=== PATIENT | female | born 1985 | race Caucasian/White ===

== ENCOUNTER 2019-03-04 11:53 | Inpatient (IN) ==
--- NOTE | 2019-03-04 12:12 | Emergency Department Note ---
Disposition Clinical Impression: SIRS (systemic inflammatory response syndrome), Status post splenectomy UTI (urinary tract infection) Qualifiers: Urinary tract infection type: acute cystitis Hematuria presence: without hematuria Qualified Code(s): N30.00 - Acute cystitis without hematuria Disposition: Admitted As Inpatient Condition: Fair Referrals: NONE,PCP [Primary Care Provider] - Forms: ED Satisfaction Letter, Work/School Release Time of Disposition: 14:06 General Adult HPI - General Chief complaint: ED General Medical Stated complaint: nausea, bodyaches, and elevated glucose Time Seen by Provider: 03/04/19 12:07 Source: patient Mode of arrival: private vehicle Limitations: no limitations Nursing Notes Reviewed: Yes Vital Signs Reviewed: Yes - History of Present Illness HPI Narrative: Patient relates she woke her 11 PM yesterday evening feeling chills and feeling very sluggish and tired. She states her temperature did spike to 101.7 and she took some Tylenol. She has diffuse aches primarily in her back. She has had mild headache without light sensitivity or neck stiffness. She denies sore throat, cough or shortness of breath. She denies abdominal pain but has had little nausea without vomiting. She has diarrhea. She notes urinary frequency without burning area she was exposed to somebody with viral upper respiratory type infection a week ago. This morning she states her blood sugars were high for her and were about 200 and then rechecked at 177. She does have an insulin pump. She states she had complications of pancreatitis and has had cholecystectomy, splenectomy, pancreatectomy as well as partial bowel resection as a result. 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 Onset (ago): hour(s) (12) Pain Scale: 5 - Related Data Home Medications Medication Instructions Recorded Confirmed Insulin Pump/Infus. Set/Meter 12/24/16 [Accu-Chek Combo System] Lipase/Protease/Amylase [Bibi Rogers 6 tab PO ACHS 12/24/16 02/17/17 24,000 Units Capsule] Kmd136/Iron Fumarate/FA/Dss 1 tab PO DAILY 12/24/16 02/17/17 [ 19 Tablet] Allergies Allergy/AdvReac Type Severity Reaction Status Date / Time hydromorphone [From Dilaudid] Allergy Rash Verified 12/24/16 20:22 meperidine [From Demerol] Allergy Anaphylaxis Verified 03/21/17 20:22 methadone [Methadone] Allergy Itching Verified 01/19/17 18:10 morphine Allergy Anaphylaxis Verified 12/24/16 20:22 moxifloxacin [From Avelox] Allergy Rash Verified 12/24/16 20:22 vancomycin Allergy Rash Verified 12/24/16 20:22 All systems ED: reviewed and negative except as stated. Past Medical History - Past Medical History Attestation: Yes The following information was validated with the patient. Source: patient, nursing notes reviewed Medical history: Reports: diabetes, other (Prior severe pancreatitis) Surgical history: Reports: appendectomy, cholecystectomy, splenectomy, other (Pancreas, partial bowel resection) Psychiatric history: Reports: depression - Social History Smoking Status: Never smoker Smokeless Tobacco Status: No Alcohol use: Reports: none Drug use: Reports: none Physical Exam - General Limitations: no limitations General appearance: alert, in no apparent distress - Head Head exam: atraumatic, normocephalic, normal inspection - Eye Eye exam: Present: normal appearance, PERRL, EOMI, other (No light sensitivity). Absent: scleral icterus, conjunctival injection - ENT ENT exam: normal exam, normal oropharynx, mucous membranes moist - Neck Neck exam: Present: normal inspection, full ROM, trachea midline - Chest Chest inspection: Present: normal inspection, symmetric chest wall rise - Respiratory Respiratory exam: Present: normal lung sounds bilaterally. Absent: respiratory distress, wheezes, prolonged expiratory phase - Cardiovascular Cardiovascular exam: Present: regular rate, normal rhythm, normal heart sounds - Abdominal Exam Abdominal exam: Present: soft, Non-Tender, normal bowel sounds. Absent: tenderness, distention, guarding, rebound, rigidity - Extremities Exam Extremities exam: Present: normal inspection, full ROM, normal capillary refill. Absent: tenderness, pedal edema - Expanded Lower Extremity Exam Neurovascular/Tendon exam: Present: normal capillary refill. Absent: motor deficit, sensory deficit, tendon deficit - Back Exam Back exam: Present: normal inspection, full ROM, CVA tenderness (R), CVA tenderness (L). Absent: tenderness - Neurological Exam Neurological exam: Present: alert, oriented X3 - Psychiatric Psychiatric exam: Present: normal affect, normal mood - Skin Skin exam: Present: warm, dry, intact, normal color. Absent: diaphoresis, pallor Course Course Narrative: 1400: Care has been discussed with the patient. She states she often does go on Zosyn and I have started with 2 g of Rocephin. I advised with her splenectomy and leukocytosis and fever it will be best to continue on IV fluids and antibiotics. She states her gastric urologist is in [place] but does feel comfortable staying here. A call has been placed to Dr. Gale to discuss inpatient care and also additional antibiotic coverage as needed. Vital Signs Temperature 101.1 F H 03/04/19 11:54 Pulse Rate 118 03/04/19 11:54 Respiratory Rate 18 03/04/19 11:54 Blood Pressure 113/80 03/04/19 11:54 O2 Sat by Pulse Oximetry 99 03/04/19 11:54 Temperature 101.1 F H 03/04/19 11:54 Pulse Rate 105 03/04/19 13:25 Respiratory Rate 18 03/04/19 13:25 Blood Pressure 133/86 03/04/19 13:25 O2 Sat by Pulse Oximetry 100 03/04/19 13:25 Oxygen Delivery Oxygen Delivery Room Air Medical Decision Making - Lab Data Lab results reviewed: Yes I reviewed the patient's lab results. Result diagrams: 03/04/19 12:39 03/04/19 12:39 Lab Results 03/04/19 03/04/19 03/04/19 Range/Units 12:13 12:39 12:39 WBC 33.0 H* (4.3-11.1) K/mcL RBC 4.47 (3.82-4.97) M/mcL Hgb 14.2 (11.5-15.4) g/dL Hct 40.5 (35.3-44.9) % MCV 90.6 (83.0-100.0) fL MCH 31.8 (28.0-33.3) pg MCHC 35.1 (31.6-35.5) g/dL RDW 13.3 (11.5-14.5) % Plt Count 268 (140-400) K/mcL MPV 12.4 (9.4-12.4) fL Seg Neutrophils % 82.0 % Band Neutrophils % 4.0 (0-4) % Lymphocytes % 2.0 % Monocytes % 12.0 % Neutrophils # 28.4 H (1.6-8.9) K/mcL Lymphocytes # 0.7 (0.6-4.6) K/mcL Monocytes # 4.0 H (0.0-1.3) K/mcL Hypersegmented Neuts Present A (Not Present) Platelet Estimate Normal (Normal) Sodium 133 L (136-145) mEq/L Potassium 3.6 (3.5-5.1) mEq/L Chloride 100 (98-107) mEq/L Carbon Dioxide 23 (23-29) mEq/L BUN 16 (6-20) mg/dL Creatinine 1.02 (0.60-1.20) mg/dL Est GFR ( Amer) > 60 (> 60) Est GFR (Non-Af Amer) > 60 (> 60) BUN/Creatinine Ratio 16 (6-26) Glucose 144 H (70-105) mg/dL Calculated Osmolality 280 (280-300) Lactic Acid (0.5-2.2) mmol/L Calcium 9.0 (8.6-10.3) mg/dL Total Bilirubin (0.3-1.0) mg/dL Direct Bilirubin (0.0-0.2) mg/dL Indirect Bilirubin (0.0-1.2) mg/dL AST (13-39) Units/L ALT (7-52) Units/L Alkaline Phosphatase (34-104) Units/L Serum Total Protein (6.4-8.9) g/dL Albumin (3.5-5.7) g/dL Globulin (2.4-3.5) g/dL Albumin/Globulin Ratio (1.1-2.2) Urine Color Yellow (Yellow) Urine Clarity Clear (Clear) Urine pH 5.5 (5.0-8.0) pH Units Ur Specific [place] 1.025 (1.010-1.025) Urine Protein 100 H (Neg-Trace) mg/dL Urine Glucose (UA) Normal (Normal) mg/dL Urine Ketones Trace H (Negative) mg/dL Urine Blood Trace-lysed H (Negative) Urine Nitrite Negative (Negative) Urine Bilirubin Small H (Negative) Urine Urobilinogen Normal (Normal) mg/dL Ur Leukocyte Esterase Trace H (Negative) Urine Microscopic RBC 0-3 (0-3) per hpf Urine Microscopic WBC 15-30 H (0-3) per hpf Ur Squamous Epith Cells Moderate H (None-Few) per lpf Urine Bacteria Many H (None-Few) per hpf Urine Mucus Moderate H (Few) Ur Culture Indicated? YES A (NO) 03/04/19 03/04/19 Range/Units 12:39 12:39 WBC (4.3-11.1) K/mcL RBC (3.82-4.97) M/mcL Hgb (11.5-15.4) g/dL Hct (35.3-44.9) % MCV (83.0-100.0) fL MCH (28.0-33.3) pg MCHC (31.6-35.5) g/dL RDW (11.5-14.5) % Plt Count (140-400) K/mcL MPV (9.4-12.4) fL Seg Neutrophils % % Band Neutrophils % (0-4) % Lymphocytes % % Monocytes % % Neutrophils # (1.6-8.9) K/mcL Lymphocytes # (0.6-4.6) K/mcL Monocytes # (0.0-1.3) K/mcL Hypersegmented Neuts (Not Present) Platelet Estimate (Normal) Sodium (136-145) mEq/L Potassium (3.5-5.1) mEq/L Chloride (98-107) mEq/L Carbon Dioxide (23-29) mEq/L BUN (6-20) mg/dL Creatinine (0.60-1.20) mg/dL Est GFR ( Amer) (> 60) Est GFR (Non-Af Amer) (> 60) BUN/Creatinine Ratio (6-26) Glucose (70-105) mg/dL Calculated Osmolality (280-300) Lactic Acid 1.4 (0.5-2.2) mmol/L Calcium (8.6-10.3) mg/dL Total Bilirubin 1.4 H (0.3-1.0) mg/dL Direct Bilirubin 0.3 H (0.0-0.2) mg/dL Indirect Bilirubin 1.1 (0.0-1.2) mg/dL AST 43 H (13-39) Units/L ALT 25 (7-52) Units/L Alkaline Phosphatase 120 H (34-104) Units/L Serum Total Protein 7.8 (6.4-8.9) g/dL Albumin 4.2 (3.5-5.7) g/dL Globulin 3.6 H (2.4-3.5) g/dL Albumin/Globulin Ratio 1.2 (1.1-2.2) Urine Color (Yellow) Urine Clarity (Clear) Urine pH (5.0-8.0) pH Units Ur Specific [place] (1.010-1.025) Urine Protein (Neg-Trace) mg/dL Urine Glucose (UA) (Normal) mg/dL Urine Ketones (Negative) mg/dL Urine Blood (Negative) Urine Nitrite (Negative) Urine Bilirubin (Negative) Urine Urobilinogen (Normal) mg/dL Ur Leukocyte Esterase (Negative) Urine Microscopic RBC (0-3) per hpf Urine Microscopic WBC (0-3) per hpf Ur Squamous Epith Cells (None-Few) per lpf Urine Bacteria (None-Few) per hpf Urine Mucus (Few) Ur Culture Indicated? (NO)
[2019-03-04] MEDS ORDERED: Ondansetron 4 MG/2 ML VIAL IVP ONE (12:17)
[2019-03-04] MEDS ORDERED: 0.9 % Sodium Chloride 1,000 ML IVC ONE (12:17)
[2019-03-04 13:01] LABS: Hematocrit 40.5 % (35.3-44.9); Hemoglobin 14.2 g/dL (11.5-15.4); Mean Corpuscular HGB Conc 35.1 g/dL (31.6-35.5); Mean Corpuscular Hemoglobin 31.8 pg (28.0-33.3); Mean Corpuscular Volume 90.6 fL (83.0-100.0); Mean Platelet Volume 12.4 fL (9.4-12.4); Platelet Count 268 K/mcL (140-400); Red Blood Count 4.47 M/mcL (3.82-4.97); Red Cell Distribution Width 13.3 % (11.5-14.5)
[2019-03-04 13:11] LABS: Bilirubin,Urine Small (Negative); Blood,Urine Trace-lysed (Negative); Clarity,Urine Clear (Clear); Color,Urine Yellow (Yellow); Glucose,Urine (UA) Normal (Normal); Ketones,Urine Trace mg/dL (Negative); Leukocyte Esterase,Urine Trace (Negative); Nitrite,Urine Negative (Negative); PH,Urine 5.5 pH Units (5.0-8.0); Protein,Urine 100 mg/dL (Neg-Trace); Specific Gravity,Urine 1.025 (1.010-1.025); Urobilinogen,Urine Normal (Normal)
[2019-03-04 13:15] LABS: Bacteria,Urine Many per hpf (None-Few); Mucus,Urine Moderate (Few); RBC,Urine 0-3 per hpf (0-3); Squamous Epithelial Cell,Urine Moderate per lpf (None-Few); WBC,Urine 15-30 per hpf (0-3)
[2019-03-04 13:17] LABS: Albumin 4.2 g/dL (3.5-5.7); Albumin/Globulin Ratio 1.2 (1.1-2.2); Bilirubin,Direct 0.3 mg/dL (0.0-0.2); Bilirubin,Indirect 1.1 mg/dL (0.0-1.2); Bilirubin,Total 1.4 mg/dL (0.3-1.0); Globulin 3.6 g/dL (2.4-3.5); Total Protein 7.8 g/dL (6.4-8.9)
[2019-03-04 13:47] LABS: Hypersegmented Neutrophils Present (Not Present); Lymphocytes # 0.7 K/mcL (0.6-4.6); Neutrophils # 28.4 K/mcL (1.6-8.9); Platelet Estimate Normal (Normal)
[2019-03-04 13:55] LABS: BUN/Creatinine Ratio 16 (6-26); Blood Urea Nitrogen 16 mg/dL (6-20); Carbon Dioxide 23 mEq/L (23-29); Chloride 100 mEq/L (98-107); Glucose 144 mg/dL (70-105); Osmolality,Calculated 280 (280-300); Potassium 3.6 mEq/L (3.5-5.1); Sodium 133 mEq/L (136-145); eGFR For African Americans > 60 (> 60); eGFR For Non-African Americans > 60 (> 60)
[2019-03-04] MEDS ORDERED: cefTRIAXone 2,000 MG in 0.9 % Sodium Chloride Mini Bag 100 ML IVPB ONE (14:03)
[2019-03-04] MEDS ORDERED: *HR* Promethazine 25 MG/ML VIAL IVP ONE (14:21)
[2019-03-04] MEDS ORDERED: cefTRIAXone 2,000 MG in Water for inj. (sterile) 20 ML IVP ONE (15:00)
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
[2019-03-04] MEDS: Acetaminophen 325 MG TABLET PO PRN (18:11)
[2019-03-04] MEDS: Nitrofurantoin (BID) 100 MG CAPSULE PO SCH (18:11)
[2019-03-04] MEDS: Ondansetron ODT 4 MG TAB.RAPDIS SL PRN ×2 (18:56→23:26)
[2019-03-04] MEDS: 0.45 % Sodium Chloride w/KCl 20 MEQ/1,000 ML MLS IVC SCH (18:56)
[2019-03-04] MEDS: Ibuprofen 600 MG TABLET PO PRN (22:03)
[2019-03-04] MEDS: *HR* Promethazine 25 MG/ML VIAL IVP PRN (22:04)
[2019-03-04] MEDS: Lactobacillus 1 EACH CAP.SPRINK PO SCH (23:26)
[2019-03-05] MEDS: 0.45 % Sodium Chloride w/KCl 20 MEQ/1,000 ML MLS IVC SCH ×3 (02:55→17:26)
[2019-03-05 06:24] LABS: Basophils # 0.1 K/mcL (0.0-0.2); Basophils % 0.3 %; Hematocrit 35.6 % (35.3-44.9); Hemoglobin 12.6 g/dL (11.5-15.4); Immature Granulocytes % 1.4 % (0-4); Lymphocytes # 1.7 K/mcL (0.6-4.6); Lymphocytes % 5.8 %; Mean Corpuscular HGB Conc 35.4 g/dL (31.6-35.5); Mean Corpuscular Hemoglobin 31.8 pg (28.0-33.3); Mean Corpuscular Volume 89.9 fL (83.0-100.0); Mean Platelet Volume 12.2 fL (9.4-12.4); Monocytes # 2.1 K/mcL (0.0-1.3); Monocytes % 7.2 %; Platelet Count 213 K/mcL (140-400); Red Blood Count 3.96 M/mcL (3.82-4.97); Red Cell Distribution Width 13.8 % (11.5-14.5); Segmented Neutrophils % 85.3 %; White Blood Count 29.3 K/mcL (4.3-11.1)
[2019-03-05 07:18] LABS: Platelet Estimate Normal (Normal)
[2019-03-05 07:24] LABS: Alanine Aminotransferase 23 Units/L (7-52); Albumin 3.2 g/dL (3.5-5.7); Albumin/Globulin Ratio 1.1 (1.1-2.2); Alkaline Phosphatase 95 Units/L (34-104); Aspartate Amino Transferase 24 Units/L (13-39); BUN/Creatinine Ratio 19 (6-26); Bilirubin,Total 0.7 mg/dL (0.3-1.0); Blood Urea Nitrogen 18 mg/dL (6-20); Calcium 8.1 mg/dL (8.6-10.3); Carbon Dioxide 20 mEq/L (23-29); Chloride 103 mEq/L (98-107); Globulin 2.9 g/dL (2.4-3.5); Glucose 291 mg/dL (70-105); Osmolality,Calculated 285 (280-300); Potassium 4.2 mEq/L (3.5-5.1); Sodium 131 mEq/L (136-145); Total Protein 6.1 g/dL (6.4-8.9); eGFR For African Americans > 60 (> 60); eGFR For Non-African Americans > 60 (> 60)
[2019-03-05] MEDS: *HR* Promethazine 25 MG/ML VIAL IVP PRN ×3 (08:41→20:38)
[2019-03-05] MEDS: cefTRIAXone 1,000 MG in Water for inj. (sterile) 10 ML IVP SCH (08:42)
[2019-03-05] MEDS: Nitrofurantoin (BID) 100 MG CAPSULE PO SCH ×2 (08:43→17:23)
[2019-03-05] MEDS: Lactobacillus 1 EACH CAP.SPRINK PO SCH ×2 (08:43→20:38)
[2019-03-05] MEDS: Ibuprofen 600 MG TABLET PO PRN (14:12)
--- NOTE | 2019-03-05 14:14 | Internal Med Progress Note ---
Date of Encounter: 03/05/19 Time of Encounter: 14:05 - Assessment and plan (1) UTI (urinary tract infection) Current Visit: Yes Status: Acute Assessment and plan: March 05. WBC has decreased to 29.3K. Continue empiric Rocephin and Macrobid with lactobacillus. Preliminary culture report shows gram-negative rods. Qualifiers: Urinary tract infection type: acute cystitis Hematuria presence: without hematuria Qualified Code(s): N30.00 - Acute cystitis without hematuria (2) Diabetes Current Visit: No Status: Chronic Assessment and plan: March 05. She has restarted insulin pump. Continue Accu-Cheks with SSI. Qualifiers: Diabetes mellitus type: due to underlying condition Diabetes mellitus medical terminologist insulin use: with medical terminologist use Diabetes mellitus complication status: with unspecified complications Qualified Code(s): E08.8 - Diabetes mellitus due to underlying condition with unspecified complications; Z79.4 - intermodal dispatcher (current) use of insulin (3) History of pancreatectomy Current Visit: Yes Status: Acute Assessment and plan: March 05. Continue Creon before meals and at bedtime. - Subjective Interval history: March 05. She has no new complaints except a headache - Constitutional Vitals: Temp Pulse Resp BP Pulse Ox 102.1 F H 70 17 98/56 98 03/05/19 14:11 03/05/19 11:10 03/05/19 11:10 03/05/19 11:10 03/05/19 11:10 Exam: She is sitting on the side of the bed and appears in no acute distress. Her affect is overall cheerful. I reviewed her medications and lab results. Internal Medicine: Result - Labs CBC & Chem 7: 03/05/19 06:07 03/05/19 06:07 Labs: Short CBC 03/05/19 Range/Units 06:07 WBC 29.3 H (4.3-11.1) K/mcL Hgb 12.6 D (11.5-15.4) g/dL Hct 35.6 (35.3-44.9) % Plt Count 213 (140-400) K/mcL Neutrophils # 25.0 H (1.6-8.9) K/mcL BMP 03/05/19 06:07 Sodium 131 L Potassium 4.2 Chloride 103 Carbon Dioxide 20 L BUN 18 Creatinine 0.96 Glucose 291 H Calcium 8.1 L Liver Function 03/05/19 Range/Units 06:07 Total Bilirubin 0.7 (0.3-1.0) mg/dL AST 24 (13-39) Units/L ALT 23 (7-52) Units/L Alkaline Phosphatase 95 (34-104) Units/L Albumin 3.2 L (3.5-5.7) g/dL Consult Discharge Plan - Plan Referrals: NONE,PCP [Primary Care Provider] - 1 week
--- NOTE | 2019-03-05 21:29 | Electrocardiograph Report ---
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
[2019-03-06] MEDS: *HR* Promethazine 25 MG/ML VIAL IVP PRN (05:18)
[2019-03-06] MEDS: 0.45 % Sodium Chloride w/KCl 20 MEQ/1,000 ML MLS IVC SCH ×2 (05:18→08:45)
[2019-03-06] MEDS: Nitrofurantoin (BID) 100 MG CAPSULE PO SCH (07:57)
[2019-03-06] MEDS: cefTRIAXone 1,000 MG in Water for inj. (sterile) 10 ML IVP SCH (07:57)
[2019-03-06] MEDS: Lactobacillus 1 EACH CAP.SPRINK PO SCH (07:57)
[2019-03-06] MEDS: Acetaminophen 325 MG TABLET PO PRN (07:57)
[2019-03-06 10:19] VITALS: BP 102/59
[2019-03-06 10:25] LABS: Basophils # 0.1 K/mcL (0.0-0.2); Basophils % 0.3 %; Eosinophils # 0.1 K/mcL (0.0-0.6); Eosinophils % 0.4 %; Hematocrit 31.7 % (35.3-44.9); Hemoglobin 11.2 g/dL (11.5-15.4); Immature Granulocytes % 0.7 % (0-4); Lymphocytes # 1.1 K/mcL (0.6-4.6); Lymphocytes % 5.5 %; Mean Corpuscular HGB Conc 35.3 g/dL (31.6-35.5); Mean Corpuscular Hemoglobin 31.8 pg (28.0-33.3); Mean Corpuscular Volume 90.1 fL (83.0-100.0); Mean Platelet Volume 12.6 fL (9.4-12.4); Monocytes # 1.7 K/mcL (0.0-1.3); Monocytes % 8.8 %; Platelet Count 189 K/mcL (140-400); Red Blood Count 3.52 M/mcL (3.82-4.97); Red Cell Distribution Width 14.2 % (11.5-14.5); Segmented Neutrophils % 84.3 %; White Blood Count 19.5 K/mcL (4.3-11.1)
[2019-03-06 10:29] LABS: Neutrophils # 16.4 K/mcL (1.6-8.9)
[2019-03-06 10:30] LABS: BUN/Creatinine Ratio 13 (6-26); Blood Urea Nitrogen 10 mg/dL (6-20); Carbon Dioxide 22 mEq/L (23-29); Chloride 104 mEq/L (98-107); Glucose 252 mg/dL (70-105); Osmolality,Calculated 282 (280-300); Potassium 3.9 mEq/L (3.5-5.1); Sodium 132 mEq/L (136-145); eGFR For African Americans > 60 (> 60); eGFR For Non-African Americans > 60 (> 60)
[2019-03-06] MEDS: Ibuprofen 600 MG TABLET PO PRN (12:00)
--- NOTE | 2019-03-06 14:06 | Discharge Summary ---
Orders not resulted at time of discharge: Pending orders 03/04/19 12:39 Culture,Blood [BC] Stat Date of Encounter: 03/06/19 Time of Encounter: 13:55 - Discharge Diagnosis (1) UTI (urinary tract infection) Priority: Primary Status: Acute Qualifiers: Urinary tract infection type: acute cystitis Hematuria presence: without hematuria Qualified Code(s): N30.00 - Acute cystitis without hematuria (2) Diabetes Priority: Secondary Status: Chronic Qualifiers: Diabetes mellitus type: due to underlying condition Diabetes mellitus custodial insulin use: with local intermodal truck driver use Diabetes mellitus complication status: with unspecified complications Qualified Code(s): E08.8 - Diabetes mellitus due to underlying condition with unspecified complications; Z79.4 - terminal operator (current) use of insulin (3) History of pancreatectomy Priority: Secondary Status: Acute Hospital course: Ms. Ford is a 33 year old female who came to emergency room stating she had onset of fevers and chills with nausea approximately 11 p.m. the evening of March 04. When symptoms persisted for several hours she came to emergency room. She was found to have fever 101.1 on presentation with evidence of UTI. WBC was significantly elevated at 33.0 with left shift on differential. She was admitt ed to [facility] floor for ongoing care needs. Initial orders were written by the emergency room physician. I saw her on March 04 and performed a history and physical. She was started empirically on Alessandro ephin in emergency room for UTI. Macrobid was added for additional spectrum coverage. Urine culture returned growing Enterobacter with sensitivity to Rocephin and Macrobid. She had good clinical response to treatment with WBC decreasing to 19.5 by March 06. When I saw her March 06 she stated she felt improved enough to be discharged home. I offered keeping her another day in the hospital for IV antibiotics and told her she was still spiking fever up to 101.7 with elevated WBC. She wished to be discharged. She will be discharged home to continue antibiotic and probiotic for an additional 7 days. She will follow with a PCP within 1 week. - Time Spent with Patient Total time spent providing and/or coordinating discharge services: - Discharge Medications Prescriptions: New Sulfamethoxazole/Trimeth DS [Bactrim DS] 1 each PO BID #14 tablet Lactobacillus [Culturelle] 1 each PO BID #14 cap.sprink Nitrofurantoin (BID) [Macrobid] 100 mg PO BIDWM #14 capsule Promethazine [Phenergan] 12.5 mg PO Q6HR PRN #10 tablet PRN Reason: Nausea Continued Lipase/Protease/Amylase [Bibi Rogers 24,000 Units Capsule] 6 tab PO ACHS Aac263/Iron Fumarate/FA/Dss [ 19 Tablet] 1 tab PO DAILY Insulin Pump/Infus. Set/Meter [Accu-Chek Combo System] Home Medications: Insulin Pump/Infus. Set/Meter [Accu-Chek Combo System] 12/24/16 [History] Lipase/Protease/Amylase [Bibi Rogers 24,000 Units Capsule] 6 tab PO ACHS 12/24/16 [History] Auy556/Iron Fumarate/FA/Dss [ 19 Tablet] 1 tab PO DAILY 12/24/16 [History] Lactobacillus [Culturelle] 1 each PO BID #14 cap.sprink 03/06/19 [Rx] Nitrofurantoin (BID) [Macrobid] 100 mg PO BIDWM #14 capsule 03/06/19 [Rx] Promethazine [Phenergan] 12.5 mg PO Q6HR PRN #10 tablet 03/06/19 [Rx] Sulfamethoxazole/Trimeth DS [Bactrim DS] 1 each PO BID #14 tablet 03/06/19 [Rx] Allergies/Adverse Reactions: Allergy/AdvReac Type Severity Reaction Status Date / Time hydromorphone [From Dilaudid] Allergy Rash Verified 12/24/16 20:22 meperidine [From Demerol] Allergy Anaphylaxis Verified 12/24/16 20:22 methadone [Methadone] Allergy Itching Verified 01/19/17 18:10 morphine Allergy Anaphylaxis Verified 12/24/16 20:22 moxifloxacin [From Avelox] Allergy Rash Verified 12/24/16 20:22 vancomycin Allergy Rash Verified 12/24/16 20:22 Date of admission: 03/04/19 18:34 Primary care physician: PCP NONE - Constitutional Vitals: Temp Pulse Resp BP Pulse Ox 100.0 F H 56 20 102/59 96 03/06/19 10:16 03/06/19 10:16 03/06/19 10:16 03/06/19 10:16 03/06/19 10:16 - Patient Status Disposition: Home, Self-Care Condition: Fair - Discharge Instructions Follow Up With: NONE,PCP [Primary Care Provider] - 1 week - Diet and Activity Activity: resume usual activities as tolerated Diet: diabetic diet
== END 2019-03-06 14:49 | disposition home or self-care (01) | DRG 690 ==
LOC: INPPIK 11:53 → EMEROOPIK 11:53 → INPPIK 15:38
PROVIDERS: ADMIT Internal Medicine; ATTEND Internal Medicine

== ENCOUNTER 2020-05-03 20:22 | Inpatient (IN) ==
[2020-05-03 22:35] LABS: Bilirubin,Urine Negative (Negative); Blood,Urine Small (Negative); Clarity,Urine Slightly Cloudy (Clear); Glucose,Urine (UA) 250 mg/dL (Normal); Ketones,Urine Negative (Negative); Leukocyte Esterase,Urine Negative (Negative); Nitrite,Urine Positive (Negative); Protein,Urine 30 mg/dL (Neg-Trace); Specific Gravity,Urine >= 1.030 (1.010-1.025); Urobilinogen,Urine Normal (Normal)
[2020-05-03] MEDS ORDERED: Ketorolac 30 MG/ML VIAL IVP ONE (22:36)
[2020-05-03] MEDS ORDERED: 0.9 % Sodium Chloride 1,000 ML IVC ONE (22:36)
[2020-05-03] MEDS ORDERED: Ondansetron 4 MG/2 ML VIAL IVP ONE (22:36)
[2020-05-03 22:49] LABS: Color,Urine Dark Yellow (Yellow)
[2020-05-03 22:51] LABS: Amorphous Sediment,Urine Moderate per hpf (None-Few); Hyaline Casts,Urine Moderate per lpf (None Seen); Squamous Epithelial Cell,Urine Few per hpf (None-Few)
[2020-05-03 23:14] LABS: Basophils # 0.1 K/mcL (0.0-0.2); Basophils % 0.3 %; Eosinophils # 0.1 K/mcL (0.0-0.6); Eosinophils % 0.2 %; Hematocrit 39.7 % (35.3-44.9); Hemoglobin 13.7 g/dL (11.5-15.4); Immature Granulocytes % 0.6 % (0-4); Lymphocytes # 1.7 K/mcL (0.6-4.6); Lymphocytes % 7.2 %; Mean Corpuscular HGB Conc 34.5 g/dL (31.6-35.5); Mean Corpuscular Hemoglobin 33.1 pg (28.0-33.3); Mean Corpuscular Volume 95.9 fL (83.0-100.0); Mean Platelet Volume 12.6 fL (9.4-12.4); Monocytes # 2.7 K/mcL (0.0-1.3); Monocytes % 11.1 %; Neutrophils # 19.4 K/mcL (1.6-8.9); Platelet Count 165 K/mcL (140-400); Red Blood Count 4.14 M/mcL (3.82-4.97); Red Cell Distribution Width 13.2 % (11.5-14.5); Segmented Neutrophils % 80.6 %; White Blood Count 24.1 K/mcL (4.3-11.1)
[2020-05-03 23:19] LABS: VBG HCO3 20 mEq/L (21-27); VBG PCO2 31 mmHg (41-51); VBG PH 7.43 pH Units (7.32-7.42); VBG PO2 92 mmHg (25-50)
[2020-05-04] MEDS ORDERED: Ketorolac 60 MG/2 ML VIAL IM ONE (00:03)
[2020-05-04] MEDS ORDERED: Ondansetron ODT 4 MG TAB.RAPDIS SL STA (00:03)
[2020-05-04] MEDS ORDERED: cefTRIAXone 1,000 MG in Water for inj. (sterile) 10 ML IVP ONE (00:04)
[2020-05-04 00:08] LABS: Alkaline Phosphatase 111 Units/L (34-104); Aspartate Amino Transferase 15 Units/L (13-39); BUN/Creatinine Ratio 13 (6-26); Blood Urea Nitrogen 12 mg/dL (6-20); Calcium 9.3 mg/dL (8.6-10.3); Carbon Dioxide 20 mEq/L (23-29); Chloride 105 mEq/L (98-107); Glucose 148 mg/dL (70-105); Osmolality,Calculated 289 (280-300); Potassium 4.2 mEq/L (3.5-5.1); Sodium 138 mEq/L (136-145); eGFR For African Americans > 60 (> 60); eGFR For Non-African Americans > 60 (> 60)
[2020-05-04 00:09] LABS: Alanine Aminotransferase 13 Units/L (7-52); Albumin 4.4 g/dL (3.5-5.7); Albumin/Globulin Ratio 1.3 (1.1-2.2); Globulin 3.3 g/dL (2.4-3.5); Total Protein 7.7 g/dL (6.4-8.9)
[2020-05-04 00:11] LABS: Platelet Estimate Normal (Normal)
[2020-05-04] MEDS ORDERED: Dextrose Gel 15 GM/37.5 ML TUBE PO PRN ×4 (02:31→03:11)
[2020-05-04] MEDS ORDERED: *HR* Dextrose 50 % in Water (Vial) 50 ML VIAL IVP PRN ×2 (02:31→03:11)
[2020-05-04] MEDS ORDERED: D5% in Water 1,000 ML IVC PRN ×2 (02:31→03:11)
[2020-05-04] MEDS ORDERED: 0.9 % Sodium Chloride 1,000 ML IVC SCH ×2 (03:00→03:11)
[2020-05-04] MEDS ORDERED: *HR* OxyCODONE Immed Rel 5 MG TABLET PO PRN (03:11)
[2020-05-04] MEDS: INFUS SET MC SCH (03:40)
[2020-05-04] MEDS: INSULIN PUMP MC SCH (03:40)
[2020-05-04] MEDS ORDERED: 0.9 % Sodium Chloride 1,000 ML IVC ONE (06:38)
[2020-05-04] MEDS ORDERED: 0.9 % Sodium Chloride 1,000 ML ONE (06:42)
[2020-05-04] MEDS ORDERED: Insulin LISPRO 300 UNITS/3 ML VIAL SQ SCH ×2 (07:30→21:00)
[2020-05-04] MEDS ORDERED: 0.9 % Sodium Chloride 1,000 ML IV ONE (07:55)
[2020-05-04 08:37] LABS: Basophils # 0.1 K/mcL (0.0-0.2); Basophils % 0.3 %; Eosinophils # 0.1 K/mcL (0.0-0.6); Eosinophils % 0.4 %; Hematocrit 35.3 % (35.3-44.9); Hemoglobin 12.2 g/dL (11.5-15.4); Immature Granulocytes % 0.8 % (0-4); Lymphocytes % 10.3 %; Mean Corpuscular HGB Conc 34.6 g/dL (31.6-35.5); Mean Corpuscular Volume 95.4 fL (83.0-100.0); Monocytes # 2.3 K/mcL (0.0-1.3); Neutrophils # 14.8 K/mcL (1.6-8.9); Platelet Count 116 K/mcL (140-400); Red Cell Distribution Width 13.5 % (11.5-14.5); Segmented Neutrophils % 76.2 %; White Blood Count 19.4 K/mcL (4.3-11.1)
[2020-05-04 08:40] LABS: BUN/Creatinine Ratio 14 (6-26); Blood Urea Nitrogen 13 mg/dL (6-20); Carbon Dioxide 18 mEq/L (23-29); Chloride 110 mEq/L (98-107); Glucose 143 mg/dL (70-105); Osmolality,Calculated 289 (280-300); Potassium 3.7 mEq/L (3.5-5.1); Sodium 138 mEq/L (136-145); eGFR For African Americans > 60 (> 60); eGFR For Non-African Americans > 60 (> 60)
[2020-05-04 08:51] LABS: Large Platelets Present (Not Present); Platelet Clumps Few (Not Present); Platelet Estimate Decreased (Normal)
[2020-05-04] MEDS: Insulin LISPRO 300 UNITS/3 ML VIAL SQ SCH ×4 (08:55→21:06)
[2020-05-04] MEDS ORDERED: Ondansetron 4 MG/2 ML VIAL IVP PRN (08:55)
[2020-05-04] MEDS: Cholecalciferol (D-3) 1,000 UNIT (25MCG) TABLET PO SCH (08:56)
[2020-05-04] MEDS: Prenatal Vit/FA 1 EACH TABLET PO SCH (09:00)
[2020-05-04] MEDS: 0.9 % Sodium Chloride 1,000 ML IVC SCH ×2 (09:00→17:22)
[2020-05-04] MEDS ORDERED: Famotidine 20 MG/2 ML VIAL IVP ONE (10:29)
[2020-05-04] MEDS ORDERED: *HR* Promethazine 25 MG/ML VIAL IVP PRN (10:29)
[2020-05-04] MEDS ORDERED: Ketorolac 30 MG/ML VIAL IVP ONE (10:29)
[2020-05-04] MEDS: Acetaminophen 325 MG TABLET PO PRN (19:28)
[2020-05-04] MEDS ORDERED: cefTRIAXone 1,000 MG in Water for inj. (sterile) 10 ML IVP SCH (20:00)
[2020-05-05] MEDS: 0.9 % Sodium Chloride 1,000 ML IVC SCH ×3 (01:20→11:48)
[2020-05-05] MEDS ORDERED: 0.9 % Sodium Chloride 1,000 ML IVC ONE (02:18)
[2020-05-05] MEDS ORDERED: 0.9 % Sodium Chloride 500 ML IV ONE (02:18)
[2020-05-05] MEDS ORDERED: 0.9 % Sodium Chloride 1,000 ML ONE (02:27)
[2020-05-05] MEDS: INFUS SET MC SCH (05:41)
[2020-05-05] MEDS: INSULIN PUMP MC SCH (05:41)
[2020-05-05 07:02] LABS: Basophils # 0.1 K/mcL (0.0-0.2); Basophils % 0.4 %; Eosinophils # 0.1 K/mcL (0.0-0.6); Eosinophils % 0.6 %; Hematocrit 40.6 % (35.3-44.9); Hemoglobin 13.4 g/dL (11.5-15.4); Immature Granulocytes % 0.5 % (0-4); Lymphocytes # 2.5 K/mcL (0.6-4.6); Lymphocytes % 10.9 %; Mean Corpuscular Hemoglobin 33.1 pg (28.0-33.3); Mean Corpuscular Volume 100.2 fL (83.0-100.0); Mean Platelet Volume 13.2 fL (9.4-12.4); Monocytes # 3.5 K/mcL (0.0-1.3); Monocytes % 15.2 %; Neutrophils # 16.7 K/mcL (1.6-8.9); Platelet Count 128 K/mcL (140-400); Red Blood Count 4.05 M/mcL (3.82-4.97); Red Cell Distribution Width 14.3 % (11.5-14.5); Segmented Neutrophils % 72.4 %
[2020-05-05 07:36] LABS: BUN/Creatinine Ratio 14 (6-26); Blood Urea Nitrogen 13 mg/dL (6-20); Calcium 8.4 mg/dL (8.6-10.3); Carbon Dioxide 18 mEq/L (23-29); Chloride 111 mEq/L (98-107); Glucose 69 mg/dL (70-105); Osmolality,Calculated 284 (280-300); Potassium 4.3 mEq/L (3.5-5.1); Sodium 138 mEq/L (136-145); eGFR For African Americans > 60 (> 60); eGFR For Non-African Americans > 60 (> 60)
[2020-05-05] MEDS: Insulin LISPRO 300 UNITS/3 ML VIAL SQ SCH ×4 (07:45→21:45)
[2020-05-05] MEDS: Prenatal Vit/FA 1 EACH TABLET PO SCH (07:51)
[2020-05-05] MEDS: Cholecalciferol (D-3) 1,000 UNIT (25MCG) TABLET PO SCH (07:52)
[2020-05-05 07:58] LABS: Platelet Estimate Decreased (Normal)
[2020-05-05] MEDS ORDERED: Albuterol 2.5 MG/3 ML NEBULIZER IH PRN (08:16)
[2020-05-05] MEDS: cefTRIAXone 2,000 MG in Water for inj. (sterile) 20 ML IVP SCH (10:31)
[2020-05-05 11:51] LABS: Adenovirus Not Detected (Not Detect); Bordetella Pertussis Not Detected (Not Detect); Chlamydophila pneumoniae Not Detected (Not Detect); Coronavirus 229E Not Detected (Not Detect); Coronavirus HKU1 Not Detected (Not Detect); Coronavirus NL63 Not Detected (Not Detect); Coronavirus OC43 Not Detected (Not Detect); Human Metapneumovirus Not Detected (Not Detect); Human Rhinovirus/Enterovirus Not Detected (Not Detect); Influenza A Subtype 2009 H1 Not Detected (Not Detect); Influenza B Not Detected (Not Detect); Mycoplasma pneumoniae Not Detected (Not Detect); Parainfluenza Virus 1 Not Detected (Not Detect); Parainfluenza Virus 2 Not Detected (Not Detect); Parainfluenza Virus 3 Not Detected (Not Detect); Parainfluenza Virus 4 Not Detected (Not Detect); Respiratory Syncytial Virus Not Detected (Not Detect)
[2020-05-05] MEDS ORDERED: Isovue-370 500 ML BOTTLE IVP ONE (15:14)
[2020-05-05] MEDS ORDERED: Azithromycin 500 MG in 0.9 % Sodium Chloride 250 ML IVPB SCH (18:00)
[2020-05-05] MEDS: Acetaminophen 325 MG TABLET PO PRN (18:14)
[2020-05-06 07:57] LABS: Basophils # 0.1 K/mcL (0.0-0.2); Basophils % 0.5 %; Eosinophils # 0.2 K/mcL (0.0-0.6); Eosinophils % 1.9 %; Hematocrit 35.1 % (35.3-44.9); Immature Granulocytes % 0.4 % (0-4); Lymphocytes # 2.7 K/mcL (0.6-4.6); Lymphocytes % 24.3 %; Mean Corpuscular HGB Conc 34.2 g/dL (31.6-35.5); Mean Corpuscular Hemoglobin 32.4 pg (28.0-33.3); Mean Corpuscular Volume 94.9 fL (83.0-100.0); Mean Platelet Volume 12.9 fL (9.4-12.4); Monocytes # 1.5 K/mcL (0.0-1.3); Monocytes % 13.5 %; Neutrophils # 6.6 K/mcL (1.6-8.9); Platelet Count 149 K/mcL (140-400); Red Cell Distribution Width 14.2 % (11.5-14.5); Segmented Neutrophils % 59.4 %; White Blood Count 11.1 K/mcL (4.3-11.1)
[2020-05-06 08:15] LABS: BUN/Creatinine Ratio 11 (6-26); Blood Urea Nitrogen 8 mg/dL (6-20); Calcium 8.4 mg/dL (8.6-10.3); Carbon Dioxide 22 mEq/L (23-29); Chloride 108 mEq/L (98-107); Glucose 79 mg/dL (70-105); Osmolality,Calculated 283 (280-300); Potassium 3.5 mEq/L (3.5-5.1); Sodium 138 mEq/L (136-145); eGFR For African Americans > 60 (> 60); eGFR For Non-African Americans > 60 (> 60)
[2020-05-06] MEDS: Insulin LISPRO 300 UNITS/3 ML VIAL SQ SCH (09:48)
[2020-05-06] MEDS: Cholecalciferol (D-3) 1,000 UNIT (25MCG) TABLET PO SCH (09:58)
[2020-05-06] MEDS: Prenatal Vit/FA 1 EACH TABLET PO SCH (09:58)
[2020-05-06] MEDS: cefTRIAXone 2,000 MG in Water for inj. (sterile) 20 ML IVP SCH (09:58)
[2020-05-06 10:49] VITALS: BP 135/87
== END 2020-05-06 11:59 | disposition home or self-care (01) | DRG 871 ==
LOC: INPPIK 20:22 → EMEROOPIK 20:22 → INPPIK 05-04 02:58
PROVIDERS: ADMIT Family Medicine; ATTEND Family Medicine